=== PATIENT | female | born 1935 | race American Indian/Alaskan Native ===

== ENCOUNTER → 2018-02-02 | Outpatient (CLI) | payer MEDICARE ==
[~2018-02-02] MED LIST: ADAL20KI2 SQ; ADAL40PE4 SQ; ASPI-1471 PO; CEPH500T7 PO; CYCL50CA5 PO; FURO-45 PO; GOLYTE PO; HYDR200T42 PO; LEVO25TA61 PO; LEVO50TA86 PO; METH2.5T43 PO; POTA20TA10 PO; SIMV-54 PO; SIMV5TAB60 PO; SPIR50TA31 PO; USTE45DI2 SQ; VITA-198 PO
== END ==
LOC: LAB 08:17
PROVIDERS: ATTEND Internal Medicine
DX: K74.60 Unspecified cirrhosis of liver (principal); E03.9 Hypothyroidism, unspecified
CPT/HCPCS: 36415; 82310; 82374; 82435; 82565; 82947; 84132; 84295; 84443; 84520

== ENCOUNTER → 2018-02-16 | Outpatient (CLI) | payer MEDICARE | LOC: LAB 07:57 | PROVIDERS: ATTEND Emergency Medicine | DX: K74.60 Unspecified cirrhosis of liver (principal) | CPT/HCPCS: 36415; 82310; 82374; 82435; 82565; 82947; 84132; 84295; 84520 ==

== ENCOUNTER → 2018-02-26 | Outpatient (CLI) | payer MEDICARE | LOC: LAB 10:10 | PROVIDERS: ATTEND Otolaryngology | DX: L50.0 Allergic urticaria (principal) | CPT/HCPCS: 36415; 86003 ==

== ENCOUNTER → 2018-03-09 | Outpatient (CLI) | payer MEDICARE ==
--- NOTE | 2018-03-09 16:24 | EKG ---
FACILITY: [facility] PATIENT NAME: VINNIE PINEDO : [id number] MR: [id number] V: [id number] EXAM DATE: ORDERING PHYSICIAN: ELINOR MORA TECHNOLOGIST: YOBANY ENGLE Test Reason : IRREGULAR HR Blood Pressure : / mmHG Vent. Rate : 071 BPM Atrial Rate : 071 BPM P-R Int : 134 ms QRS Dur : 070 ms QT Int : 376 ms P-R-T Axes : 067 020 041 degrees QTc Int : 408 ms Sinus rhythm with premature atrial complexes Otherwise normal ECG No previous ECGs available Confirmed by ELINOR MORA ([id number]) on 03/11/2018 11:57:50 AM Referred By: Confirmed By:ELINOR MORA
== END ==
LOC: RESP 14:24
PROVIDERS: ATTEND Emergency Medicine
DX: Z02.9 Encounter for administrative examinations, unspecified (principal)

== ENCOUNTER → 2018-03-17 | Outpatient (CLI) | payer MEDICARE ==
[2018-03-17 08:23] LABS: PLATELET COUNT, AUTOMATED 191 K/uL (150-450)
== END ==
LOC: LAB 07:58
PROVIDERS: ATTEND Emergency Medicine
DX: E03.9 Hypothyroidism, unspecified (principal); R73.9 Hyperglycemia, unspecified
CPT/HCPCS: 36415; 83036; 85025

== ENCOUNTER → 2018-04-16 | Outpatient (CLI) | payer MEDICARE | LOC: LAB 13:11 | PROVIDERS: ATTEND Emergency Medicine | DX: R79.89 Other specified abnormal findings of blood chemistry (principal) | CPT/HCPCS: 36415; 82310; 82374; 82435; 82565; 82947; 84132; 84295; 84520 ==

== ENCOUNTER → 2018-04-30 | Outpatient (CLI) | payer MEDICARE | LOC: LAB 12:51 | PROVIDERS: ATTEND Emergency Medicine | DX: R79.89 Other specified abnormal findings of blood chemistry (principal) | CPT/HCPCS: 36415; 82310; 82374; 82435; 82565; 82947; 84132; 84295; 84520 ==

== ENCOUNTER → 2018-06-08 | Outpatient (CLI) | payer MEDICARE ==
[~2018-06-08] MED LIST changes: -SPIR50TA31 PO; +SPIR50TA33 PO
[2018-06-08 08:32] LABS: PLATELET COUNT, AUTOMATED 185 K/uL (150-450)
== END ==
LOC: LAB 08:01
PROVIDERS: ATTEND Emergency Medicine
DX: K74.60 Unspecified cirrhosis of liver (principal); E11.9 Type 2 diabetes mellitus without complications
CPT/HCPCS: 36415; 82040; 82247; 82310; 82374; 82435; 82565; 82947; 83036; 84075; 84132; 84155; 84295; 84450; 84460; 84520; 85025

== ENCOUNTER → 2018-09-30 | Outpatient (CLI) | payer MEDICARE ==
--- NOTE | 2018-09-30 13:23 | RADIOLOGY IMAGING REPORT ---
FACILITY: [facility] PATIENT NAME: Kelly Naik : 1935 MR: [id number] V: [id number] EXAM DATE: ORDERING PHYSICIAN: ELINOR MORA TECHNOLOGIST: Location: [facility] [place] Patient: Kelly Naik : 1935 Visit/Account:[id number] Date of Sevice: 09/30/2018 DEXA Scan Clinical history: Postmenopausal. Comparison: None available. LUMBAR SPINE: The bone mineral density (BMD) measured from L1-L4 correlates with a Z-score by 0.6 and a T-score of -2.6 which is osteoporosis as defined by the World Health Organization. The corresponding risk of fr acture in the lumbar spine is 6-8 times increased compared with a young adult reference population. HIP: Bone mineral density (BMD) measured in the Left total hip region correlates with a Z-score 0.2 and a T-score of -2 which is osteopenia as defined by the World Health Organization. The corresponding ris k of fracture in the hip is 4 times increased compared with a young adult reference population. T s core left femoral neck -2.3 Bone mineral density (BMD) measured in the Femoral Neck region measures 0.713 g/cm2. Impression: 1. Lumbar spine: Osteoporosis. 2. Left Hip: Osteopenia. 3. Femoral Neck: Bone Mineral Density is 0.713 g/cm2 The next DEXA scan of this patient should include the following sites: L1-L4 and the left hip. FRAX? WHO Fracture Risk Assessment Tool link: <http://www.shef.ac.uk/FRAX/tool.jsp?locationValue=9> PLEASE NOTE: 1) The World Health Organization defines low BMD as follows: T-score Normal > -1 Osteopenia < -1 and > -2.5 Osteoporosis < -2.5 without fractures Established osteoporosis < -2.5 with fractures 2) In general, you may wish to consider: Diagnosis Treatment Follow-up DEXA Normal BMD Prevention 2-3 years Osteopenia Prevention/therapy 1-2 years Osteoporosis Therapy Yearly 3) Fracture risk estimated from the T-score is more accurate for vertebral fractures (often spontane ous) than for hip fractures. Report Dictated By: Candice Brunson MD at 09/30/2018 1:17 PM Report E-Signed By: Candice Brunson MD at 09/30/2018 1:18 PM WSN:ROSA ISELA
== END ==
LOC: RAD 09:58
PROVIDERS: ATTEND Emergency Medicine
DX: M81.0 Age-related osteoporosis without current pathological fracture (principal); M85.80 Other specified disorders of bone density and structure, unspecified site
CPT/HCPCS: 77080

== ENCOUNTER → 2018-09-30 | Outpatient (CLI) | payer MEDICARE | LOC: LAB 07:55 | PROVIDERS: ATTEND Emergency Medicine | DX: R74.8 Abnormal levels of other serum enzymes (principal); R73.09 Other abnormal glucose | CPT/HCPCS: 36415; 82306; 83036 ==

== ENCOUNTER → 2019-04-27 | Outpatient (CLI) | payer MEDICARE ==
[~2019-04-27] MED LIST changes: -SIMV5TAB60 PO; +SIMV5TAB69 PO
== END ==
LOC: LAB 08:02
PROVIDERS: ATTEND Emergency Medicine
DX: E11.9 Type 2 diabetes mellitus without complications (principal)
CPT/HCPCS: 36415; 83036